=== PATIENT | female | born 1965 | race Caucasian/White ===

== ENCOUNTER 2024-10-11 21:34 | Emergency (ER) | payer OTHER, MEDICAID ==
[~2024-10-11] VITALS: Ht 152.4 cm; Wt 45.0 kg
[2024-10-11] MEDS: HYDROcodone-ACET 5/325MG TAB PO ONE (22:55)
[2024-10-11] MEDS: KETOROLAC TROMETH 60MG/2ML VIAL IM ONE (22:56)
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
[2024-10-11] MEDS ORDERED: HYDR-4902 PO (23:32)
[2024-10-11] MEDS ORDERED: IBUP1TAB5 PO (23:32)
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
[2024-10-11 23:47] VITALS: BP 90/62; PULSE 109; RESP 17; TEMP 98.3; O2SAT 93
== END 2024-10-12 00:17 | disposition home or self-care (01) ==
LOC: ER 21:34
DX: S00.83XA Contusion of other part of head, initial encounter (principal); S20.219A Contusion of unspecified front wall of thorax, initial encounter; S92.354A Nondisplaced fracture of fifth metatarsal bone, right foot, initial encounter for closed fracture; V89.2XXA Person injured in unspecified motor-vehicle accident, traffic, initial encounter; Y93.89 Activity, other specified; Y92.89 Other specified places as the place of occurrence of the external cause; Y99.8 Other external cause status
CPT/HCPCS: 29515; 70486; 71046; 73630; 96372; 99285; J1885